=== PATIENT | female | born 1980 | race American Indian/Alaskan Native ===

== ENCOUNTER 2017-05-02 01:15 | Emergency (ER) | payer MEDICAID ==
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
[2017-05-02 12:26] VITALS: BP 103/74; PULSE 100; RESP 18; TEMP 98.1; O2SAT 99
== END 2017-05-02 06:14 | disposition home or self-care (01) ==
LOC: C.ER 01:15
DX: S09.90XA Unspecified injury of head, initial encounter (principal); S16.1XXA Strain of muscle, fascia and tendon at neck level, initial encounter; S80.212A Abrasion, left knee, initial encounter; S60.512A Abrasion of left hand, initial encounter; Y04.8XXA Assault by other bodily force, initial encounter; Y92.9 Unspecified place or not applicable

== ENCOUNTER 2019-02-28 14:43 | Emergency (ER) | payer MEDICAID, OTHER ==
[2019-02-28 15:21] VITALS: BMI 22.6
[2019-02-28 15:24] VITALS: RESP 18; TEMP 98.8; O2SAT 100
--- NOTE | 2019-02-28 15:52 | C.PDOC ---
History Of Present Illness 38 y/o female presents to the ER complaining of left inner ankle pain since last night.Patient states that the pain began after she accidentally struck her ankle against a door. Patient reports that she is able to walk. However, she notes that the pain is worse with weight bearing. Denies having weakness and numbness. Time Seen by Provider: 02/28/19 15:29 Chief Complaint (Nursing): Lower Extremity Problem/Injury History Per: Patient History/Exam Limitations: no limitations Onset/Duration Of Symptoms: Days Current Symptoms Are (Timing): Still Present Severity: Moderate Past Medical History Reviewed: Historical Data, Nursing Documentation, Vital Signs Vital Signs: Last Vital Signs Temp 98.8 F 02/28/19 15:21 Pulse 82 02/28/19 15:21 Resp 18 02/28/19 15:21 BP 113/80 02/28/19 15:21 Pulse Ox 100 02/28/19 15:21 Primary Care Provider: Iftikhar Mclean - Medical History PMH: No Chronic Diseases Surgical History: No Surg Hx Family History: States: No Known Family Hx - Social History Hx Tobacco Use: No Hx Alcohol Use: No Hx Substance Use: No - Immunization History Hx Tetanus Toxoid Vaccination: Yes (earler this year (January or February as per patient)) Hx Influenza Vaccination: No Hx Pneumococcal Vaccination: No Review Of Systems Except As Marked, All Systems Reviewed And Found Negative. Musculoskeletal: Positive for: Other (left ankle pain) Neurological: Negative for: Weakness, Numbness Physical Exam - Physical Exam Appears: Non-toxic, No Acute Distress Skin: Normal Color, Warm, Dry, Other (skin intact to left medial malleolus) Head: Atraumatic, Normacephalic Eye(s): bilateral: Normal Inspection Extremity: Normal ROM, Tenderness (tenderness to left medial malleolus), Swelling (swelling to left medial malleolus) Neurological/Psych: Oriented x3, Normal Speech, Normal Motor, Normal Sensation ED Course And Treatment O2 Sat by Pulse Oximetry: 100 (RA) Pulse Ox Interpretation: Normal - Other Rad L ANKLE X-Ray: Interpreted by Me (MED MALL FX) L FOOT X-Ray: Interpreted by Me (NEG) Progress - Re-Evaluation Re-evaluation Note: 02/28/19 16:00 D/W POD RESIDENT WILL EVAL IN ER 02/28/19 16:40 SP SPLINT BY PODIATRY - Data Reviewed Data Reviewed: Diagnostic imaging Medical Decision Making Medical Decision Making: Plan: --Motrin PO --Tylenol PO --X-Ray-Left Ankle --X-Ray-Left Foot Disposition Counseled Patient/Family Regarding: Studies Performed, Diagnosis, Need For Followup, Rx Given - Disposition Referrals: Madelin Blas DPM [Staff Provider] - Mary Puri MD [Staff Provider] - Disposition: HOME/ ROUTINE Disposition Time: 16:40 Condition: IMPROVED Prescriptions: Acetaminophen [Tylenol Extra Strength] 2 tab PO Q6 #30 tablet Ibuprofen [Motrin] 600 mg PO Q6 #30 tab Instructions: How to Use Crutches, Ankle Fracture (DC) Forms: [facility] [facility] (Tanzanian), Work Excuse - Clinical Impression Clinical Impression: Ankle fracture - Scribe Statement The provider has reviewed the documentation as recorded by the Anaibe Lindy Pimentel Provider Attestation: All medical record entries made by the Scribe were at my direction and pe rsonally dictated by me. I have reviewed the chart and agree that the record accurately reflects my personal performance of the history, physical exam, medical decision making, and the department course for this patient. I have also personally directed, reviewed, and agree with the discharge instructions and disposition.
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
[2019-02-28 17:32] VITALS: BP 115/79; PULSE 85
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
== END 2019-02-28 17:27 | disposition home or self-care (01) ==
LOC: C.ER 14:43
DX: S82.55XA Nondisplaced fracture of medial malleolus of left tibia, initial encounter for closed fracture (principal); W23.0XXA Caught, crushed, jammed, or pinched between moving objects, initial encounter

== ENCOUNTER 2019-03-09 01:38 | Emergency (ER) | payer OTHER ==
[2019-03-09 01:39] VITALS: BMI 22.6
[2019-03-09 02:07] VITALS: BP 108/77; PULSE 100; RESP 16; TEMP 98; O2SAT 99
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
== END 2019-03-09 03:00 | disposition home or self-care (01) ==
LOC: C.ER 01:38
DX: S82.892G Other fracture of left lower leg, subsequent encounter for closed fracture with delayed healing (principal); X58.XXXD Exposure to other specified factors, subsequent encounter